=== PATIENT | female | born 1945 | race Caucasian/White ===

== ENCOUNTER 2023-01-30 06:50 | Day surgery (SDC) | payer MEDICARE ==
[2023-01-29 10:55] VITALS: BMI 25.7
[2023-01-30] MEDS ORDERED: Famotidine/PF 20 mg/2ml Vial ONE (08:22)
[2023-01-30] MEDS ORDERED: Bupivacaine 0.25% HCL 30 ML VIAL ONE (08:42)
[2023-01-30] MEDS ORDERED: EPINEPHrine 1 MG/ML VIAL ONE (08:42)
[2023-01-30] MEDS ORDERED: PROPOFOL 20 ML ONE (08:46)
[2023-01-30] MEDS ORDERED: Lidocaine 1% PF 5 ML VIAL ONE (08:46)
[2023-01-30] MEDS ORDERED: CEFAZOLIN 2 GM VIAL ONE (09:00)
[2023-01-30] MEDS ORDERED: fentaNYL 50 mcg/mL 1 mL Vial ONE ×4 (09:23→11:52)
[2023-01-30] MEDS ORDERED: PROPOFOL 80 ML ONE (09:23)
[2023-01-30] MEDS ORDERED: PHENYLEPHRINE-NS 100 MCG/ML 10 ML SYRINGE ONE (10:18)
[2023-01-30] MEDS ORDERED: Non-Formulary Medication 1 EACH PO PRN (11:35)
[2023-01-30] MEDS ORDERED: HYDROcodone/Acetaminophen 5/325 mg Tablet PO PRN ×2 (11:36→11:37)
[2023-01-30] MEDS ORDERED: Morphine 2 MG/ML VIAL SLOW IVP PRN (11:38)
[2023-01-30] MEDS ORDERED: Ondansetron HCl/PF 4 MG/2 ML Vial IVP PRN (11:45)
[2023-01-30] MEDS ORDERED: Promethazine HCl 25 MG/ML VIAL IM/IV PRN (11:45)
[2023-01-30] MEDS ORDERED: HYDROmorphone 0.5 MG/0.5 ML SYRINGE ONE (12:09)
[2023-01-30] MEDS ORDERED: HYDROmorphone 2 MG/ML VIAL SLOW IVP PRN (12:15)
== END 2023-01-30 13:15 | disposition home or self-care (01) ==
LOC: CSHSDC 06:50
PROVIDERS: ATTEND Orthopaedic Surgery
PROC: XRG New Technology, Joints, Fusion (ICD-10-PCS; principal; 2023-01-30)
DX: M46.1 Sacroiliitis, not elsewhere classified (principal); F41.9 Anxiety disorder, unspecified; I25.2 Old myocardial infarction; I10 Essential (primary) hypertension; Z88.5 Allergy status to narcotic agent; Z88.2 Allergy status to sulfonamides; Z88.8 Allergy status to other drugs, medicaments and biological substances; Z79.899 Other long term (current) drug therapy
CPT/HCPCS: 27280; 72202; 86850; 86900; 86901; C1713 ×6; J0171; J3010; 36415; J1170; J2704; S0020; S0028